=== PATIENT | female | born 1975 | race Caucasian/White ===

== ENCOUNTER 2016-09-30 20:01 | Emergency (ER) | payer OTHER ==
[~2016-09-30] VITALS: Ht 152.4 cm; Wt 66.0 kg
[~2016-09-30 20:01] MED LIST: CIPR500T4 PO; NAPR-260 PO
[2016-09-30 20:09] VITALS: Ht 152.4 cm; Wt 66.0 kg
[2016-09-30] MEDS ORDERED: AZIT250T94 PO (21:12)
[2016-09-30] MEDS ORDERED: ALBU18HF INHALATION (21:12)
--- NOTE | 2016-09-30 21:33 | ERD ---
ER Documentation Chief Complaint Date/Time DATE: 09/30/16 TIME: 21:31 Chief Complaint COUGH X 3 DAYS HPI 41-year-old female presenting with a worsening cough for the past week. She has associated subjective fevers and chills. She complains of associated runny nose. She has been using an inhaler that she had been prescribed in the past for her cough and shortness of breath which has been helping. No associated headache, blurry vision, chest pain. No recent surgeries or travel. ROS All systems reviewed and are negative except as per history of present illness. Medications Home Meds Active Scripts Albuterol Sulfate* (Ventolin HFA*) 18 Gm Hfa.aer.ad, 2 PUFF INHALATION Q6H Y for WHEEZING, #1 INHALER Prov:EMILY NEWMAN MD 09/30/16 Azithromycin* (Zithromax*) 250 Mg Tablet, 250 MG PO .ZPACK DIRECTED, #6 TAB TAKE 500 MG (2 TABS) THE FIRST DAY THEN 250 MG (1 TAB) DAYS 2-5 Prov:EMILY NEWMAN MD 09/30/16 Naproxen* (Naprosyn*) 500 Mg Tablet, 500 MG PO BID Y for PAIN AND/OR INFLAMMATION, #30 TAB Prov:WENDY RICE PA-C 09/22/16 Ciprofloxacin Hcl* (Ciprofloxacin Hcl*) 500 Mg Tablet, 500 MG PO BID for 10 Days , TAB Prov:WENDY RICE PA-C 09/22/16 Reported Medications [None] No Conflict Check 08/09/12 [None] No Conflict Check 01/13/11 Allergies Allergies: Coded Allergies: No Known Drug Allergies (Verified Allergy, Mild, 09/21/16) PMhx/Soc Medical and Surgical Hx: pt denies Medical Hx, pt denies Surgical Hx Anesthesia Reaction: No Hx Neurological Disorder: No Hx Respiratory Disorders: No Hx Cardiac Disorders: No Hx Psychiatric Problems: No Hx Miscellaneous Medical Probl: No Hx Alcohol Use: No Hx Substance Use: No Hx Tobacco Use: No Smoking Status: Never smoker FmHx Family History: No diabetes Physical Exam Vitals Vital Signs Date Time Temp Pulse Resp B/P Pulse Ox O2 Delivery O2 Flow Rate FiO2 09/30/16 20:09 98.5 103 20 142/83 95 Physical Exam Const: Well-appearing, no distress, nontoxic Head: Atraumatic Eyes: Normal Conjunctiva ENT: Normal External Ears, Nose and Mouth. Neck: Full range of motion..~ No meningismus. Resp: Clear to auscultation bilaterally Cardio: Regular rate and rhythm, no murmurs Abd: Soft, non tender, non distended. Normal bowel sounds Skin: No petechiae or rashes Back: No midline or flank tenderness Ext: No cyanosis, or edema Neur: Awake and alert Psych: Normal Mood and Affect Procedures/MDM This is an otherwise healthy, well appearing patient presenting with uncomplicated URI symptoms, likely viral in etiology however I cannot rule out an acute bacterial infection given the patient's worsening symptoms. Patient is non-toxic and well hydrated. I have low suspicion for pneumonia or pulmonary embolism. I will prescribe the patient azithromycin for possible bacterial bronchitis versus sinusitis and refill her inhaler. Discharge instructions have included return precautions and close follow up with PMD. Departure Diagnosis: Primary Impression: Bronchitis Condition: Stable Patient Instructions: Bronchitis, Antiobiotic Treatment (Adult) Referrals: JOSE AVELAR MD, NELLIE R. MD Sep 30, 2016 21:33
[2016-09-30 21:34] VITALS: BP 121/74; PULSE 100; RESP 18; TEMP 99.4
== END 2016-09-30 21:34 | disposition home or self-care (01) ==
LOC: FTE 20:01
DX: J20.9 Acute bronchitis, unspecified (principal)
CPT/HCPCS: 99284

== ENCOUNTER 2017-05-25 06:20 | Emergency (ER) | payer OTHER ==
[~2017-05-25 06:20] MED LIST changes: +ALBU18HF INHALATION; +AZIT250T94 PO; +KETOROLAC 30 MG INJ ONE
[2017-05-25 07:12] VITALS: BP 102/68; PULSE 81
[2017-05-25 07:45] LABS: ALBUMIN/GLOBULIN RATIO 1.29; BILIRUBIN,INDIRECT 0.3 mg/dl (0-1.1); BILIRUBIN,TOTAL 0.3 mg/dl (0.2-1.3); CALCIUM 9.4 mg/dl (8.4-10.2); CREATININE 0.62 mg/dl (0.44-1.00); POTASSIUM 3.9 mmol/L (3.5-5.1); TOTAL PROTEIN 7.1 g/dl (6.1-8.1)
[2017-05-25 09:51] LABS: BASOPHIL # 0.1 10^3/ul (0.0-0.1); BASOPHILS % 0.8 % (0.0-2.0); EOSINOPHILS # 0.7 10^3/ul (0.0-0.5); HEMATOCRIT 39.5 % (37.0-47.0); HEMOGLOBIN 13.4 g/dl (12.0-16.0); LYMPHOCYTES # 1.6 10^3/ul (0.8-2.9); LYMPHOCYTES % 16.6 % (15.0-51.0); MEAN CORPUSCULAR HGB CONC 33.9 g/dl (32.0-37.0); MEAN CORPUSCULAR VOLUME 88.4 fl (82.0-101.0); MEAN PLATELET VOLUME 12.3 fl (7.4-10.4); MONOCYTE # 0.8 10^3/ul (0.3-0.9); MONOCYTES % 8.1 % (0.0-11.0); NEUTROPHILS % 66.8 % (39.0-77.0); PLATELET COUNT 229 10^3/UL (140-415); RED BLOOD COUNT 4.47 10^6/ul (4.20-5.40); RED CELL DISTRIBUTION WIDTH 15.9 % (11.5-14.5); WHITE BLOOD COUNT 9.8 10^3/ul (4.8-10.8)
--- NOTE | 2017-05-25 10:25 | RADRPT ---
PROCEDURE: ABDOMINAL - 3 VIEWS CLINICAL INDICATION: 42-year-old female with lower abdominal pain. TECHNIQUE: AP supine and upright views of the abdomen were obtained. The images reviewed on a [employer] workstation. COMPARISON: CT abdomen/pelvis September 22, 2016. FINDINGS: The lung bases are unremarkable. There is no free air beneath the hemidiaphragms. The bowel gas pat tern has a normal appearance. There is no evidence for obstruction. There are no abnormal calcifica tions overlying the urinary tracts. The osseous structures are unremarkable. IMPRESSION: Unremarkable abdomen radiographs. .Philip Bui MD, MD Date Time Electronically viewed and signed by .Philip Bui MD, on 05/25/2017 07:48 .Stefanie/
--- NOTE | 2017-05-25 15:24 | RADRPT ---
PROCEDURE: ULTRASOUND PELVIS CLINICAL INDICATION: 42-year-old female with left-sided pelvic pain. TECHNIQUE: Multiple sonographic images of the pelvis were obtained utilizing a transabdominal and endovaginal technique. The images were reviewed on a PACS workstation. COMPARISON: CT abdomen/pelvis September 22, 2016. FINDINGS: The uterus is visualized and measures 8.6 x 4.2 x 5.0 cm. In cysts are seen within the endocervical region. The endometrial echo complex is within normal limits and measures 7.9 mm. There is no evide nce for free fluid. The right ovary was not visualized. The left ovary has a normal echotexture and measures 3.2 x 1.9 x 2.3 cm. There is flow identified within the left ovary. No adnexal masses ar e noted. IMPRESSION: Unremarkable pelvic ultrasound however the right ovary was not visualized. .Philip Bui MD, MD Date Time Electronically viewed and signed by .Philip Bui MD, on 05/27/2017 16:02 .Shabbir
--- NOTE | 2017-05-28 13:46 | ERD ---
ER Documentation Chief Complaint Date/Time DATE: 05/28/17 TIME: 13:29 Chief Complaint LLQ abd pain. HPI This 42 year old female presented with 2 days of intermittent sharp left lower quadrant abdominal pain. No diarrhea, fever or chills. Pain is not made better or worse by anything. ROS All systems reviewed and are negative except as per history of present illness. Medications Home Meds Active Scripts Albuterol Sulfate* (Ventolin HFA*) 18 Gm Hfa.aer.ad, 2 PUFF INHALATION Q6H Y for WHEEZING, #1 INHALER Prov:EMILY NEWMAN MD 09/30/16 Azithromycin* (Zithromax*) 250 Mg Tablet, 250 MG PO .ZPACK DIRECTED, #6 TAB TAKE 500 MG (2 TABS) THE FIRST DAY THEN 250 MG (1 TAB) DAYS 2-5 Prov:EMILY NEWMAN MD 09/30/16 Naproxen* (Naprosyn*) 500 Mg Tablet, 500 MG PO BID Y for PAIN AND/OR INFLAMMATION, #30 TAB Prov:WENDY RICE PA-C 09/22/16 Ciprofloxacin Hcl* (Ciprofloxacin Hcl*) 500 Mg Tablet, 500 MG PO BID for 10 Days , TAB Prov:WENDY RICE PA-C 09/22/16 Reported Medications [None] No Conflict Check 08/09/12 [None] No Conflict Check 01/13/11 Allergies Allergies: Coded Allergies: No Known Drug Allergies (Verified Allergy, Mild, 09/21/16) PMhx/Soc Medical and Surgical Hx: pt denies Medical Hx, pt denies Surgical Hx Anesthesia Reaction: No Hx Neurological Disorder: No Hx Respiratory Disorders: No Hx Cardiac Disorders: No Hx Psychiatric Problems: No Hx Miscellaneous Medical Probl: No Hx Alcohol Use: No Hx Substance Use: No Hx Tobacco Use: No Smoking Status: Never smoker FmHx Family History: No coronary disease, No diabetes, No other Physical Exam Vitals Vital Signs Date Time Temp Pulse Resp B/P Pulse Ox O2 Delivery O2 Flow Rate FiO2 05/25/17 07:12 81 102/68 99 Room Air Physical Exam Const: [] No distress Head: Atraumatic Eyes: Normal Conjunctiva ENT: Normal External Ears, Nose and Mouth. Neck: Full range of motion..~ No meningismus. Resp: Clear to auscultation bilaterally Cardio: Regular rate and rhythm, no murmurs Abd: Soft, mild LLQ tenderness without guarding or rebound, non distended. Normal bowel sounds Skin: No petechiae or rashes Back: No midline or flank tenderness Ext: No cyanosis, or edema Neur: Awake and alert Psych: Normal Mood and Affect Result Diagram: 05/25/17 0240 05/25/17 0240 Results 24 hrs Laboratory Tests Test 05/25/17 02:40 05/25/17 10:59 White Blood Count 9.810^3/ul Red Blood Count 4.4710^6/ul Hemoglobin 13.4g/dl Hematocrit 39.5% Mean Corpuscular Volume 88.4fl Mean Corpuscular Hemoglobin 30.0pg Mean Corpuscular Hemoglobin Concent 33.9g/dl Red Cell Distribution Width 15.9% Platelet Count 86959^3/UL Mean Platelet Volume 12.3fl Neutrophils % 66.8% Lymphocytes % 16.6% Monocytes % 8.1% Eosinophils % 7.0% Basophils % 0.8% Nucleated Red Blood Cells % 0.0/100WBC Neutrophils # (Manual) 6.510^3/ul Lymphocytes # 1.610^3/ul Monocytes # 0.810^3/ul Eosinophils # 0.710^3/ul Basophils # 0.110^3/ul Nucleated Red Blood Cells # 0.010^3/ul Sodium Level 146mmol/L Potassium Level 3.9mmol/L Chloride Level 103mmol/L Carbon Dioxide Level 26mmol/L Anion Gap 21 Blood Urea Nitrogen 7mg/dl Creatinine 0.62mg/dl Glucose Level 95mg/dl Calcium Level 9.4mg/dl Total Bilirubin 0.3mg/dl Direct Bilirubin 0.00mg/dl Indirect Bilirubin 0.3mg/dl Aspartate Amino Transf (AST/SGOT) 87IU/L Alanine Aminotransferase (ALT/SGPT) 291IU/L Alkaline Phosphatase 107IU/L Total Protein 7.1g/dl Albumin 4.0g/dl Globulin 3.10g/dl Albumin/Globulin Ratio 1.29 Lab Scanned Report [id number] Current Medications Medications (Trade) Dose Ordered Sig/Desmond Route PRN Reason Start Time Stop Time Status Last Admin Dose Admin Ketorolac Tromethamine (Toradol) 30 mg STK-MED ONCE .ROUTE 05/25/17 03:38 05/25/17 08:47 DC Procedures/MDM UTI likely cause of abdominal pain. Pt was given a liter of normal saline and IV toradol which led to near resolution fo abdominal pain. During computer down time urine dip was performed and positive for leukocyte esterase. Us pelevis and xr neagative for acute pathaology. She will be discharged in stable condition with Naproxen and Cipro. PCP follow up and return precautions advised. US pelvis: No abnormalities of left ovary or adnexa. Uterus within normal limits. XR abdomen: I see no acute process. Normal bowel gas pattern, no free air, or bony abnormalities. Departure Diagnosis: Primary Impression: UTI (urinary tract infection) Additional Impression: Acute abdominal pain Condition: Stable CAITLIN HUTCHISON DO May 28, 2017 13:39
== END 2017-05-25 07:11 | disposition home or self-care (01) ==
LOC: E/R 06:20
DX: N39.0 Urinary tract infection, site not specified (principal)
CPT/HCPCS: 74010; 76830; 76856; 80053; 85025; 96374; 99285; J1885

== ENCOUNTER 2018-09-02 10:33 | Emergency (ER) | END 2018-09-02 13:17 | disposition home or self-care (01) ==

== ENCOUNTER 2018-12-07 13:36 | Emergency (ER) | payer OTHER ==
[~2018-12-07] VITALS: Wt 70.3 kg
[~2018-12-07 13:36] MED LIST changes: +AZIT250T PO; -AZIT250T94 PO; +FAMO-96 PO; -KETOROLAC 30 MG INJ ONE; -NAPR-260 PO; +NAPR-985 PO
[2018-12-07 13:38] VITALS: BP 138/67; PULSE 98; RESP 16
[2018-12-07] MEDS ORDERED: IBUP-1542 PO (16:09)
[2018-12-07] MEDS ORDERED: AZIT250T PO (16:09)
[2018-12-07] MEDS ORDERED: D-ME473S2 PO (16:09)
--- NOTE | 2018-12-07 16:13 | ERD ---
ER Documentation Chief Complaint Chief Complaint COUGH, CONGESTION, BODYACHES, ONSET 2 WEEKS HPI 43-year female presents with productive cough, body aches for last 2 weeks. She denies fever. She denies chest pain shortness of breath, vomiting, abdominal pain. She is here with her daughter with URI symptoms as well. ROS All systems reviewed and are negative except as per history of present illness. Medications Home Meds Active Scripts Ibuprofen* (Motrin*) 600 Mg Tab, 600 MG PO Q6, #15 TAB Prov:AGNES FLORES MD 12/07/18 Dextromethorphan Hb-Promethazine Hcl* (Promethazine DM* Syrup) 473 Ml Syrup, 5 ML PO Q6 PRN for COUGH for 5 Days, ML Prov:AGNES FLORES MD 12/07/18 Azithromycin* (Zithromax*) 250 Mg Tablet, 250 MG PO .ZPACK DIRECTED, #6 TAB TAKE 500 MG (2 TABS) THE FIRST DAY THEN 250 MG (1 TAB) DAYS 2-5 Prov:AGNES FLORES MD 12/07/18 Famotidine* (Pepcid*) 20 Mg Tablet, 20 MG PO BID for 4 Days, TAB Prov:LAKESHA GRUBER PA-C 09/02/18 Albuterol Sulfate* (Ventolin HFA*) 18 Gm Hfa.aer.ad, 2 PUFF INHALATION Q6H PRN for WHEEZING, #1 INHALER Prov:EMILY NEWMAN MD 09/30/16 Azithromycin* (Zithromax*) 250 Mg Tablet, 250 MG PO .ZPACK DIRECTED, #6 TAB TAKE 500 MG (2 TABS) THE FIRST DAY THEN 250 MG (1 TAB) DAYS 2-5 Prov:EMILY NEWMAN MD 09/30/16 Naproxen* (Naprosyn*) 500 Mg Tablet, 500 MG PO BID PRN for PAIN AND/OR INFLAMMATION, #30 TAB Prov:WENDY RICE PA-C 09/22/16 Ciprofloxacin Hcl* (Ciprofloxacin Hcl*) 500 Mg Tablet, 500 MG PO BID for 10 Days, TAB Prov:WENDY RICE PA-C 09/22/16 Reported Medications [None] No Conflict Check 08/09/12 [None] No Conflict Check 01/13/11 Allergies Allergies: Coded Allergies: No Known Drug Allergies (Verified Allergy, Mild, 09/21/16) PMhx/Soc Anesthesia Reaction: No Hx Neurological Disorder: No Hx Respiratory Disorders: No Hx Cardiac Disorders: No Hx Psychiatric Problems: No Hx Miscellaneous Medical Probl: No Hx Alcohol Use: No Hx Substance Use: No Hx Tobacco Use: No FmHx Family History: No diabetes, No coronary disease, No other Physical Exam Vitals Vital Signs Date Temp Pulse Resp B/P (MAP) Pulse Ox O2 O2 Flow FiO2 Time Delivery Rate 12/07/18 97.4 98 16 138/67 98 13:38 (90) Physical Exam Const: No acute distress Head: Atraumatic Eyes: Normal Conjunctiva ENT: Normal External Ears, Nose and Mouth. TMs and oropharynx normal. Neck: Full range of motion. No meningismus. Resp: Clear to auscultation bilaterally. Rhonchi without rales, wheezing or retractions. Cardio: Regular rate and rhythm, no murmurs Abd: Soft, non tender, non distended. Normal bowel sounds Skin: No petechiae or rashes Back: No midline or flank tenderness Ext: No cyanosis, or edema Neur: Awake and alert Psych: Normal Mood and Affect Procedures/MDM Patient presents with productive cough for last 2 weeks without signs of hypoxemia, respiratory distress. We will treat empirically with Zithromax, promethazine, ibuprofen, primary care follow-up and return precautions. The patient was stable with no new complaints during the ER course. Clinically, there is no current evidence to suggest meningitis, sepsis, acute abdomen, pneumonia, stroke, acute coronary syndrome, pulmonary embolism, aortic dissection or any other emergent condition appearing to require further evaluation or hospitalization. Patient counseled regarding my diagnostic impression and care plan. Prior to discharge all questions answered. Pt agrees with treatment plan and understands strict return precautions. Pt is instructed to follow up with primary care provider within 24-48 hours. Precautionary instructions provided including instructions to return to the ER if not improving or for any worsening or changing symptoms or concerns. Departure Diagnosis: Primary Impression: Upper respiratory infection URI type: unspecified URI Qualified Codes: J06.9 - Acute upper respiratory infection, unspecified Condition: Stable Patient Instructions: Bronchitis, Antiobiotic Treatment (Adult) Referrals: NO PRIMARY,CARE PHYSICIAN (PCP) Additional Instructions: Recheck for new or worsening symptoms with primary care doctor. AGNES FLORES MD Dec 07, 2018 16:13
== END 2018-12-07 16:30 | disposition home or self-care (01) ==
LOC: FTE 13:36
DX: J06.9 Acute upper respiratory infection, unspecified (principal)
CPT/HCPCS: 99283

== ENCOUNTER 2019-03-21 06:43 | Emergency (ER) | payer OTHER ==
[~2019-03-21] VITALS: Ht 154.9 cm; Wt 72.0 kg
[~2019-03-21 06:43] MED LIST changes: +D-ME473S2 PO; +IBUP-1542 PO
[2019-03-21 06:47] VITALS: BP 135/86; PULSE 79; RESP 18; Ht 154.9 cm; Wt 72.0 kg
[2019-03-21] MEDS ORDERED: IPRATROPIUM (NEB) 0.5 MG/2.5 ML AMP NEB STA (07:27)
[2019-03-21] MEDS ORDERED: ALBUTEROL 0.083% (NEB) 2.5 MG/3 ML AMP NEB STA (07:27)
[2019-03-21] MEDS ORDERED: ALBU18HF INHALATION (08:58)
[2019-03-21] MEDS ORDERED: SYMB80120 INHALATION (08:59)
--- NOTE | 2019-03-21 08:59 | ERD ---
ER Documentation Chief Complaint Chief Complaint wheezing , chest congestion , headache x 6 days HPI 43 year old female presents to the ED complaining of wheezing, chest congestion, and ALEXANDRE x 1.5 weeks. She reports a hx of asthma but denies any other medical hx. She denies smoking or use of illicit drugs. She states she has a Ventolin HFA inhaler and a Qvar inhaler. She only uses the Ventolin inhaler. However, she feels like her asthma is worse now. She denies any fevers, chills. She does report coughing up yellow phlegm occasionally. ROS All systems reviewed and are negative except as per history of present illness. Medications Home Meds Active Scripts Budesonide-Formoterol Fumarate* (Symbicort*) 80-4.5 Inha, 2 PUFFS INHALATION BID, #1 EACH Prov:JESSIE CHO PA-C 03/21/19 Albuterol Sulfate* (Ventolin HFA*) 18 Gm Hfa.aer.ad, 2 PUFF INHALATION Q6H, #1 INHALER Prov:JESSIE CHO PA-C 03/21/19 Ibuprofen* (Motrin*) 600 Mg Tab, 600 MG PO Q6, #15 TAB Prov:AGNES FLORES MD 12/07/18 Dextromethorphan Hb-Promethazine Hcl* (Promethazine DM* Syrup) 473 Ml Syrup, 5 ML PO Q6 PRN for COUGH for 5 Days, ML Prov:AGNES FLORES MD 12/07/18 Azithromycin* (Zithromax*) 250 Mg Tablet, 250 MG PO .LitzyPACK DIRECTED, #6 TAB TAKE 500 MG (2 TABS) THE FIRST DAY THEN 250 MG (1 TAB) DAYS 2-5 Prov:AGNES FLORES MD 12/07/18 Famotidine* (Pepcid*) 20 Mg Tablet, 20 MG PO BID for 4 Days, TAB Prov:LAKESHA GRUBER PA-C 09/02/18 Albuterol Sulfate* (Ventolin HFA*) 18 Gm Hfa.aer.ad, 2 PUFF INHALATION Q6H PRN for WHEEZING, #1 INHALER Prov:EMILY NEWMAN MD 09/30/16 Azithromycin* (Zithromax*) 250 Mg Tablet, 250 MG PO .MADELIN DIRECTED, #6 TAB TAKE 500 MG (2 TABS) THE FIRST DAY THEN 250 MG (1 TAB) DAYS 2-5 Prov:EMILY NEWMAN MD 09/30/16 Naproxen* (Naprosyn*) 500 Mg Tablet, 500 MG PO BID PRN for PAIN AND/OR INFLAMMATION, #30 TAB Prov:WENDY RICE PA-C 09/22/16 Ciprofloxacin Hcl* (Ciprofloxacin Hcl*) 500 Mg Tablet, 500 MG PO BID for 10 Days, TAB Prov:WENDY RICE PA-C 09/22/16 Reported Medications [None] No Conflict Check 08/09/12 [None] No Conflict Check 01/13/11 Allergies Allergies: Coded Allergies: No Known Drug Allergies (Verified Allergy, Mild, 03/21/19) PMhx/Soc Anesthesia Reaction: No Hx Neurological Disorder: No Hx Respiratory Disorders: Yes (asthma) Hx Cardiac Disorders: No Hx Psychiatric Problems: No Hx Miscellaneous Medical Probl: No Hx Alcohol Use: No Hx Substance Use: No Hx Tobacco Use: No Smoking Status: Never smoker FmHx Family History: No diabetes Physical Exam Vitals Vital Signs Date Temp Pulse Resp B/P (MAP) Pulse Ox O2 O2 Flow FiO2 Time Delivery Rate 03/21/19 98 Room Air 09:15 03/21/19 85 20 96 21 07:58 03/21/19 97.9 79 18 135/86 95 06:47 (102) Physical Exam Const: No acute distress Head: Atraumatic Eyes: Normal Conjunctiva ENT: Normal External Ears, Nose and Mouth. Neck: Full range of motion. Resp: Significant wheezing throughout lungs bilat Cardio: Regular rate and rhythm Abd: Soft, non tender, non distended. Skin: No petechiae or rashes Back: No midline or flank tenderness Ext: No cyanosis, or edema Neur: Awake and alert Psych: Normal Mood and Affect Results 24 hrs Current Medications Medications Dose Sig/Desmond Start Time Status Last (Trade) Ordered Route PRN Stop Time Admin Dose Reason Admin Albuterol 7.5 mg ONCE STAT 03/21/19 DC 03/21/19 (Proventil NEB 07:27 07:56 0.083% (Neb)) 03/21/19 07:30 Ipratropium 1.5 mg ONCE STAT 03/21/19 DC 03/21/19 [place] NEB 07:27 07:56 (Atrovent 03/21/19 07:30 0.02% (Neb)) Procedures/MDM ED COURSE: The patient was stable throughout ED course. I kept the patient informed of laboratory and diagnostic imaging results throughout the ED course. DIAGNOSTIC IMAGING: Read by radiologist. PROCEDURE: XR Chest. CLINICAL INDICATION: Difficulty breathing TECHNIQUE: Single frontal view of the chest was obtained COMPARISON: None FINDINGS: The heart and mediastinum are within normal limits. The lungs are clear. There is no pleural effusion or pneumothorax. The bones and soft tissue show no acute change. IMPRESSION: No definite abnormalities are identified. RPTAT:AAJJ Physician Yoandy Date Time Electronically viewed and signed by Shane Beltran Physician on 03/21/2019 08:52 PROCEDURES: Breathing Treatment - Consulted Respiratory Therapy MEDICATIONS GIVEN: Albuterol, Ipratropium Patient tolerated medication well with no adverse reactions. Patient reported improvement in pain. MEDICAL DECISION MAKING: Patient is a 43 yr old female complaining of wheezing, coughing, and chest tightness x 1.5 weeks. She has a history of asthma in which she uses Ventolin inhaler and does not use her Qvar inhaler. She states her asthma is worse now than in the past. I believe this patient is suffering from an asthma exacerbation. RT was consulted and a breathing tx containing albuterol and Ipratropium was given to the patient. Afterwards the patient stated that she feels amazing. Her lung sounds improved. Patient had an xray done which was negative for pneumonia. At this time, I do no thing the patient is suffering from pneumonia, PE, Pulmonary edema, lung cancer, pulmonary edema, CHF. Patient was counseled on using her inhaler and told to follow up with PCP in next 1-2 days. Vital signs were reviewed. Patient is afebrile. Patient was not hypoxic. Patient was hemodynamically stable. PRESCRIPTION: Albuterol, Symbicort DISCHARGE: At this time, patient is stable for discharge and outpatient management. I have instructed the patient to follow-up with his/her primary care physician in 1-2 days. I have discussed with the patient the possibility of needing to see a specialist for further workup and imaging studies if symptoms persist. I have instructed the patient to promptly return to the ER for any new or worsening symptoms including increased pain, fever, nausea, vomiting, weakness or LOC. The patient and/or family expressed understanding of and agreement with this plan. All questions were answered. Home care instructions were provided. Disclaimer: Inadvertent spelling and grammatical errors are likely due to EHR/dictation software use and do not reflect on the overall quality of patient care. Also, please note that the electronic time recorded on this note does not necessarily reflect the actual time of the patient encounter. Departure Diagnosis: Primary Impression: Asthma Asthma severity: moderate Asthma persistence: unspecified Asthma complication type: with acute exacerbation Qualified Codes: J45.901 - Unspecified asthma with (acute) exacerbation Condition: Fair Patient Instructions: Asthma Referrals: [facility] YOU HAVE RECEIVED A MEDICAL SCREENING EXAM AND THE RESULTS INDICATE THAT YOU DO NOT HAVE A CONDITION THAT REQUIRES URGENT TREATMENT IN THE EMERGENCY DEPARTMENT. FURTHER EVALUATION AND TREATMENT OF YOUR CONDITION CAN WAIT UNTIL YOU ARE SEEN IN YOUR DOCTORS OFFICE WITHIN THE NEXT 1-2 DAYS. IT IS YOUR RESPONSIBILITY TO MAKE AN APPOINTMENT FOR FOLOW-UP CARE. IF YOU HAVE A PRIMARY DOCTOR --you should call your primary doctor and schedule an appointment IF YOU DO NOT HAVE A PRIMARY DOCTOR YOU CAN CALL OUR PHYSICIAN REFERRAL HOTLINE AT IF YOU CAN NOT AFFORD TO SEE A PHYSICIAN YOU CAN CHOSE FROM THE FOLLOWING [facility] [address] [facility]. [facility] [address] [facility] [facility] [address] [facility]. [facility] [address] [facility]. [facility] [address] [facility]. [facility]. [address] [facility] YOU HAVE RECEIVED A MEDICAL SCREENING EXAM AND THE RESULTS INDICATE THAT YOU DO NOT HAVE A CONDITION THAT REQUIRES URGENT TREATMENT IN THE EMERGENCY DEPARTMENT. FURTHER EVALUATION AND TREATMENT OF YOUR CONDITION CAN WAIT UNTIL YOU ARE SEEN IN YOUR DOCTORS OFFICE WITHIN THE NEXT 1-2 DAYS. IT IS YOUR RESPONSIBILITY TO MAKE AN APPOINTMENT FOR FOLOW-UP CARE. IF YOU HAVE A PRIMARY DOCTOR --you should call your primary doctor and schedule and appointment IF YOU DO NOT HAVE A PRIMARY DOCTOR YOU CAN CALL OUR PHYSICIAN REFERRAL HOTLINE AT . IF YOU CAN NOT AFFORD TO SEE A PHYSICIAN YOU CAN CHOSE FROM THE FOLLOWING [facility] INSTITUTIONS: [facility] [address] [place] [address] [facility] [address] [place] [address] [facility] [address] [place] [address] Additional Instructions: Call your primary care doctor TOMORROW for an appointment during the next 1-2 days.See the doctor sooner or return here if your condition worsens before your appointment time. JESSIE CHO PA-C Mar 21, 2019 08:59
== END 2019-03-21 09:15 | disposition home or self-care (01) ==
LOC: FTE 06:43
DX: J45.901 Unspecified asthma with (acute) exacerbation (principal)
CPT/HCPCS: 71045; 94664; Z7502; Z7610